=== PATIENT | male | born 1955 | race Caucasian/White ===

== ENCOUNTER 2019-09-01 17:32 | Emergency (ER) | payer OTHER, BC ==
[~2019-09-01] VITALS: Ht 182.9 cm; Wt 106.6 kg
[~2019-09-01 17:32] MED LIST: ASPIRIN325 PO; FLONASE16 GM NASAL; GLUCOPHAGE500 MG PO; LISINOPRIL-HCT1 EAC2 PO; LOVASTAT40 PO; PAXIL 20 MG TAB20 M1 PO; PERCOCET 5-3251 EACH PO
[2019-09-01] MEDS ORDERED: ASA81BEC PO (17:37)
[2019-09-01] MEDS ORDERED: XANAX 0.5 MG0.5 M1 PO (17:38)
[2019-09-01 18:04] LABS: ABSOLUTE BASOPHILS 0.1 thou/uL (0.0-0.2); ABSOLUTE EOSINOPHILS 0.3 thou/uL (0.0-0.7); ABSOLUTE LYMPHOCYTES 2.7 thou/uL (0.8-5.3); ABSOLUTE MONOCYTES 0.5 thou/uL (0.0-1.2); ABSOLUTE NEUTROPHILS 3.8 thou/uL (1.6-8.1); BASOPHILS 1.3 %; EOSINOPHILS 4.5 %; HEMATOCRIT 39.4 % (42.0-52.0); HEMOGLOBIN 13.6 gm/dL (14.0-18.0); LYMPHOCYTES 36.6 %; MCH 32.8 pg (26.0-34.0); MCHC 34.5 g/dL (28.0-37.0); MCV 95.1 fL (80.0-100.0); MONOCYTES 6.8 %; MPV 7.9 fl. (7.2-11.1); NUCLEATED RBCS 0 /100WBC; PLATELET COUNT* 283 thou/uL (150-400); POLYS 50.8 %; RBC 4.14 mil/uL (4.50-6.00); RDW-CV 13.1 % (10.5-14.5); WBC 7.5 thou/uL (4.0-11.0)
[2019-09-01 18:13] LABS: CALCIUM 7.7 mg/dL (8.5-10.1); CREATININE 1.2 mg/dL (0.6-1.3); POTASSIUM 3.2 mmol/L (3.5-5.1)
[2019-09-01 18:17] LABS: APTT 23.7 Seconds (25.0-31.3); PROTIME 10.5 Seconds (9.20-11.50)
[2019-09-01 18:20] LABS: ALBUMIN 2.9 g/dL (3.4-5.0); TOTAL BILIRUBIN 0.3 mg/dL (<0.1-1.0); TOTAL PROTEIN 5.8 g/dL (6.4-8.2)
[2019-09-01 19:04] VITALS: BP 102/76
--- NOTE | 2019-09-02 15:39 | EKG ---
[place] [address] ELECTROCARDIOGRAM REPORT Name: LEWISISADORA Primitivo Room: [facility]#: [id number] Admission: 09/01/19 Attend Phys: Discharge: 09/01/19 Date of : 59 Date of Service: 09/01/191741 Report #: [id number] THIS REPORT FOR: //name// 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[place] [facility] [place] 1955 Requested By: Riki Cotnreras Order Number: [id number] MD: Pramod Montes Measurements Intervals [place] Rate: 88 P: 28 [place]: 164 QRS: -34 QRSD: 97 T: 22 QT: 373 QTc: 452 Interpretive Statements Sinus rhythm Left axis deviation Low voltage, precordial leads Anteroseptal infarct, old possible No previous ECG available for comparison Electronically Signed On 09-02-2019 15:38:18 CDT by Pramod Montes [email or web address] <ELECTRONICALLY SIGNED> By: Pramod Montes MD, [facility] 09/02/19 1538 1742 1742 Pramod Montes MD, [facility] /EPI
== END 2019-09-01 19:04 | disposition home or self-care (01) ==
LOC: M.ERS 17:32
PROVIDERS: Family Medicine
DX: R55 Syncope and collapse (principal); R42 Dizziness and giddiness; R06.00 Dyspnea, unspecified; I10 Essential (primary) hypertension; F32.9 Major depressive disorder, single episode, unspecified; E11.9 Type 2 diabetes mellitus without complications; Z79.82 Long term (current) use of aspirin; Z79.84 Long term (current) use of oral hypoglycemic drugs